=== PATIENT | male | born 1995 | race Two or more races ===

== ENCOUNTER 2021-03-16 10:20 | Emergency (ER) | payer SELFPAY ==
[~2021-03-16] VITALS: Ht 172.7 cm; Wt 68.0 kg
[2021-03-16 10:28] VITALS: BP 123/78
--- NOTE | 2021-03-16 10:41 | NUR ---
PT AMBULATORY TO ROOM FROM TRIAGE, CHAGNED INTO GOWN. PT TO BR FOR URINE SAMPLE. PT C/O DISCHARGE & PAIN. DENIES PAINFUL URINATION. ERP AT BS
[2021-03-16] MEDS ORDERED: DOXYCYCLINE 100MG TABLET ONE (10:48)
[2021-03-16] MEDS ORDERED: CEFTRIAXONE 1,000 MG ONE (10:48)
--- NOTE | 2021-03-16 10:55 | NUR ---
PT MEDICATED PER EMAR
[2021-03-16] MEDS ORDERED: DOXYCYCLINE 100MG TABLET PO ONE (11:00)
[2021-03-16] MEDS ORDERED: CEFTRIAXONE 1,000 MG IM ONE (11:00)
--- NOTE | 2021-03-16 11:02 | NUR ---
Patient given discharge instructions and RX, they have confirmed that they understand the instructions. Patient ambulatory with steady gait.
== END 2021-03-16 11:03 | disposition home or self-care (01) ==
LOC: MERGE 10:55 → ED 10:55
DX: A56.01 Chlamydial cystitis and urethritis (principal); A54.89 Other gonococcal infections
CPT/HCPCS: 87491; 87591; 96372; 99283; J0696